=== PATIENT | female | born 1985 | race Caucasian/White ===

== ENCOUNTER 2019-10-09 03:42 | Observation (INO) | payer BC ==
[~2019-10-09] VITALS: Ht 149.9 cm; Wt 63.0 kg
[~2019-10-09 03:42] MED LIST: DOCU-131 PO; IBUP-1222 PO; OXYC-302 PO; PNV1TABL11 PO; PSYL1PAC9 PO
[2019-10-09 04:22] LABS: MICROSCOPIC NOT IND
[2019-10-09 06:24] LABS: ALANINE AMINOTRANSFERASE 14 U/L (12-78); ALBUMIN 2.8 g/dL (3.4-5.0); ANION GAP 7 mmol/L (5-15); BASOPHILS # (AUTO) 0.04 x10^3/uL (0-0.1); BASOPHILS % (AUTO) 0 % (0-1); CALCIUM 8.2 mg/dL (8.5-10.1); CHLORIDE 110 mmol/L (98-107); EOSINOPHILS # (AUTO) 0.23 x10^3/uL (0-0.4); EOSINOPHILS % (AUTO) 2 % (1-7); LYMPHOCYTES # (AUTO) 2.09 x10^3/uL (1-3.4); LYMPHOCYTES % (AUTO) 17 % (22-44); MD NO; MEAN CORPUSCULAR HGB CONC 33.8 g/dL (32.4-35.8); MEAN CORPUSCULAR VOLUME 100.4 fL (80-100); MEAN PLATELET VOLUME 7.1 fL (7.4-10.4); MONOCYTES # (AUTO) 0.57 x10^3/uL (0.2-0.8); MONOCYTES % (AUTO) 5 % (2-9); NEUTROPHILS # (AUTO) 9.11 x10^3/uL (1.8-6.8); NEUTROPHILS % (AUTO) 76 % (42-75); PLATELET COUNT 188 x10^3/uL (130-400); RED CELL DISTRIBUTION WIDTH 12.9 % (9.6-15.2)
[2019-10-09 06:27] LABS: ALKALINE PHOSPHATASE 80 U/L (45-117); BILIRUBIN,TOTAL 0.2 mg/dL (0.2-1.0); CREATININE 0.55 mg/dL (0.55-1.02); TOTAL PROTEIN 6.2 g/dL (6.4-8.2)
== END 2019-10-09 06:55 | disposition home or self-care (01) ==
LOC: LDOP 03:42 → LDIP 05:30
PROVIDERS: ADMIT Obstetrics & Gynecology; ATTEND Obstetrics & Gynecology
DX: O26.893 Other specified pregnancy related conditions, third trimester (principal); R10.9 Unspecified abdominal pain; O99.513 Diseases of the respiratory system complicating pregnancy, third trimester; J45.909 Unspecified asthma, uncomplicated; Z3A.29 29 weeks gestation of pregnancy
CPT/HCPCS: 36415; 59025; 80053; 81003; 83690; 85025; 87086; 99201; G0378; G0463

== ENCOUNTER 2020-09-18 19:12 | Emergency (ER) | payer BC ==
[~2020-09-18] VITALS: Ht 149.9 cm; Wt 55.1 kg
[~2020-09-18 19:12] MED LIST changes: -OXYC-302 PO; +OXYC1TAB14 PO; +PREN1TAB98 PO
[2020-09-18 20:12] VITALS: BP 106/76
--- NOTE | 2020-09-18 20:12 | NUR ---
FIRST CONTACT WITH JOURDAN
--- NOTE | 2020-09-18 20:17 | NUR ---
CC OF RLQ PAIN 4/10 AT REST, 9/10 WHEN BENDING OVER SINCE WEDNESDAY. PT HAS NOT TAKEN ANY MEDICATIONS AT HOME. PT ADMITS TO SMOKING MARIJUANA SOMETIMES AT NIGHT. DENIES N/V.
--- NOTE | 2020-09-18 20:17 | NUR ---
UA COLLECTED AND WALKED TO LAB
[2020-09-18 20:23] LABS: MICROSCOPIC AUTO
[2020-09-18 20:40] LABS: ALANINE AMINOTRANSFERASE 20 U/L (12-78); ALBUMIN 4.1 g/dL (3.4-5.0); ANION GAP 8 mmol/L (5-15); BASOPHILS % (AUTO) 1 % (0-1); CALCIUM 9.2 mg/dL (8.5-10.1); CHLORIDE 107 mmol/L (98-107); CREATININE 0.93 mg/dL (0.55-1.02); EOSINOPHILS % (AUTO) 3 % (1-7); LYMPHOCYTES % (AUTO) 30 % (22-44); MEAN CORPUSCULAR HEMOGLOBIN 34.2 pg (27.0-34.8); MEAN CORPUSCULAR HGB CONC 34.6 g/dL (32.4-35.8); MEAN PLATELET VOLUME 7.5 fL (7.4-10.4); MONOCYTES % (AUTO) 8 % (2-9); NEUTROPHILS % (AUTO) 58 % (42-75); PLATELET COUNT 261 x10^3/uL (130-400); RED BLOOD COUNT 4.25 x10^6/uL (3.82-5.3); RED CELL DISTRIBUTION WIDTH 12.5 % (9.6-15.2)
[2020-09-18 20:41] LABS: MD NO
[2020-09-18 20:44] LABS: ALKALINE PHOSPHATASE 103 U/L (45-117); BILIRUBIN,TOTAL 0.2 mg/dL (0.2-1.0); TOTAL PROTEIN 7.3 g/dL (6.4-8.2)
--- NOTE | 2020-09-18 22:00 | NUR ---
US AT BEDSIDE
== END 2020-09-18 23:15 | disposition home or self-care (01) ==
LOC: ED 19:42
DX: N83.292 Other ovarian cyst, left side (principal); N83.291 Other ovarian cyst, right side; R10.31 Right lower quadrant pain; J45.909 Unspecified asthma, uncomplicated
CPT/HCPCS: 36415; 76830; 80053; 81001; 84703; 85025; 87086; 99284